=== PATIENT | male | born 1940 | race Caucasian/White ===

== ENCOUNTER 2022-07-28 19:05 | Emergency (ER) | payer MEDICARE, BC ==
[2022-07-28] VITALS (10 sets, daily range): BP systolic 149–175; BP diastolic 77–90
[~2022-07-28] VITALS: Ht 177.8 cm; Wt 83.0 kg
[~2022-07-28 19:05] MED LIST: ACCUPRIL10 MG; AMBIEN10 MG PO; ASPIRIN81 MG OR; ASPIRIN81 MG PO; BAYER ASPIRIN325 MG PO; CIPROFLOXACIN500 M1 PO; CIPROFLOXACN500 MG PO; CO Q-10400 MG PO; CRESTOR10 MG PO; CRESTOR20 MG PO; CYANOCOBALAM1000 MC1 IM; CYANOCOBALAM1000 MCG IJ; CYANOCOBALAM1000 MCG IM; DETROL LA4 MG PO; FINASTERIDE5 M1 PO; FINASTERIDE5 MG PO; FISH OIL300 MG OR; FLOMAX0.4 M1 PO; FLUARIX QUADRIV1 INJ IM; FLUZONE1 M1 IM; GABAPENTIN600 MG OR; LANTUS; LEVOTHYROXIN125 MCG PO; LEVOTHYROXIN175 MC1 PO; LEVOTHYROXIN200 MC2 PO; LIPITOR20 MG OR; MEDDOSEPAK PO; METFORMIN1000 MG OR; METFORMIN500 M2 PO; METFORMIN500 MG PO; METOPROL TAR25 M1 OR; METOPROL TAR50 MG OR; METOPROL TAR50 MG PO; METOPROLOL TAR100 MG PO; MIRALAX3350 NF PO; NEURONTIN600 MG PO; NEXIUM40 MG OR; NEXIUM40 MG PO; NITROGLYCER0.4 MG SL; NYSTAT/TRIA1 EX; OXYCOD-APAP1 TA1 PO; OXYCOD-APAP1 TAB PO; PERCOCET 5/325M1 TAB PO; PERCOCET1 TA2 PO; PERCOCET1 TA3 PO; PERCOCET1 TAB OR; PLAVIX75 MG OR; PLAVIX75 MG PO; PREVACID30 M1 PO; PROSCAR OR; STOOL SOFTENER100 MG PO; SYNTHROID150 MCG PO; TIZANIDINE HCL4 MG PO; TRAMADOL HCL50 MG PO; TRIAMCINOLON0.11 EX; VASOTEC5 MG PO; WARFARIN3 MG PO; ZITHROMAX500 MG PO; ZOLPIDEM10 M1 PO; ZOLPIDEM10 MG OR; ZOLPIDEM5 MG PO; [UNRECOGNIZED DRUG - OTHER] OR; [UNRECOGNIZED DRUG - SUPPLY] XX
[2022-07-28] MEDS ORDERED: PERCOCET 10/31 COMBO PO (20:38)
== END 2022-07-28 22:30 | disposition home or self-care (01) ==
LOC: ED 19:05
PROC: 2W3QX1Z Immobilization of Right Lower Leg using Splint (ICD-10-PCS; principal; 2022-07-28)
DX: S82.831A Other fracture of upper and lower end of right fibula, initial encounter for closed fracture (principal); I10 Essential (primary) hypertension; H54.8 Legal blindness, as defined in USA; X50.0XXA Overexertion from strenuous movement or load, initial encounter; Y92.009 Unspecified place in unspecified non-institutional (private) residence as the place of occurrence of the external cause

== ENCOUNTER 2024-02-27 08:03 | Emergency (ER) | payer MEDICARE, BC ==
[2024-02-27] VITALS (13 sets, daily range): BP systolic 123–177; BP diastolic 64–93
[~2024-02-27] VITALS: Ht 177.8 cm; Wt 81.6 kg
[~2024-02-27 08:03] MED LIST changes: +PERCOCET 10/31 COMBO PO
[2024-02-27] MEDS ORDERED: SODIUM CHLORIDE 0.9% 1,000 ML IV ONE (08:15)
[2024-02-27] MEDS ORDERED: ONDANSETRON HCl 4 MG/2 ML SDV IV ONE (08:15)
[2024-02-27 08:45] LABS: BASO% 0.4 % (0-3); EOS% 0.8 % (0-8); HEMATOCRIT 40.9 % (39.0-50.0); IMMATURE GRANULOCYTES 0.3 % (0.0-5.0); LYMPH% 13.4 % (15-41); MEAN CELL VOLUME 91.3 fL CALC (80.0-100.0); MEAN CORPUSCULAR HGB 30.1 pG CALC (26.0-32.0); MONO% 6.9 % (2-13); NEUT# 5.58 thou/uL (1.82-7.42); NEUT% 78.2 % (42-76); RED BLOOD COUNT 4.48 mill/uL (4.70-6.10); RED CELL DISTRI WIDTH 12.9 % (11.5-15.5)
[2024-02-27 08:46] LABS: HEMOGLOBIN 13.5 g/dl (14.0-18.0)
[2024-02-27 08:53] LABS: ALKALINE PHOSPHATASE 74 u/l (38-126); BUN 21 mg/dL (8-23); BUN/CREATININE RATIO 24 (12-20 (CALC)); CARBON DIOXIDE 27 mmol/l (22-30); CHLORIDE 107 mmol/l (95-108); CREATININE 0.9 mg/dL (0.7-1.3); ESTIMATED GFR 84 ML/MIN (>=90 (CALC)); LIPASE 71 u/l (23-300); SGOT/AST 22 u/l (19-48); SODIUM 138 mmol/l (137-146); TOTAL PROTEIN 6.6 g/dL (6.3-8.2)
[2024-02-27 08:54] LABS: ALBUMIN 4.2 g/dL (3.2-5.0); ANION GAP 8 (6-22 (CALC)); BILIRUBIN, TOTAL 0.9 mg/dL (0.2-1.3); POTASSIUM 3.5 mmol/l (3.5-5.1)
[2024-02-27] MEDS ORDERED: MORPHINE SULFATE 4 MG/ML VIAL IV ONE (10:45)
[2024-02-27 10:53] LABS: URINE BILIRUBIN - DIPSTICK Negative (NEGATIVE); URINE BLOOD DIPSTICK Moderate (NEGATIVE); URINE GLUCOSE - DIPSTICK Negative (NEGATIVE); URINE KETONE Trace mg/dL (NEGATIVE); URINE LEUK ESTERASE Trace (NEGATIVE); URINE NITRITE - DIPSTICK Negative (Negative); URINE PH 5.5 (4.5-8.0); URINE PROTEIN - DIPSTICK Trace mg/dL (NEG-TRACE); URINE SPECIFIC GRAVITY 1.015; URINE UROBILINOGEN - DIPSTICK 0.2 E.U./dL (0.2)
[2024-02-27] MEDS ORDERED: Ciprofloxacin 200 mg Premix 200 ML IV ONE (10:55)
[2024-02-27 10:59] LABS: URINE COLOR Yellow
[2024-02-27] MEDS ORDERED: ZOFRAN4 MG/TAB PO (12:31)
[2024-02-27] MEDS ORDERED: CIPROFLOXACN500 MG PO (12:31)
[2024-02-27] MEDS ORDERED: METRONIDAZOLE500 MG PO (12:31)
== END 2024-02-27 13:09 | disposition home or self-care (01) ==
LOC: ED 08:03
PROVIDERS: Family Medicine
DX: K52.9 Noninfective gastroenteritis and colitis, unspecified (principal); I10 Essential (primary) hypertension; E11.9 Type 2 diabetes mellitus without complications; Z95.1 Presence of aortocoronary bypass graft; Z79.84 Long term (current) use of oral hypoglycemic drugs; Z20.822 Contact with and (suspected) exposure to COVID-19